=== PATIENT | male | born 1995 | race Two or more races ===

== ENCOUNTER 2016-08-19 12:27 | Emergency (ER) | payer OTHER ==
[2016-08-19 12:37] VITALS: BP 108/57; PULSE 69; TEMP 98.5; BMI 28.3
--- NOTE | 2016-08-19 14:13 | PDOC ---
History of Present Illness - General Chief Complaint: Injury Stated Complaint: INJURY Time Seen by Provider: 08/19/16 13:02 History Source: Patient Exam Limitations: No Limitations - History of Present Illness Initial Comments: 08/19/16 14:13 21-year-old male presenting injury to the left hand. Patient states was lifting up a heavy item that started to slip wedging his hand between 2 pieces of metal. Patient states this incident occurred yesterday and had minimal swelling at the time but states since swelling increased along with discomfort he decided come to the ER. Patient denies previous injury to the affected area, paresthesia distal of injury, radiation of pain. Timing/Duration: 24 hours Severity: mild Associated Symptoms: reports: denies symptoms Past History - Travel Traveled outside of the country in the last 30 days: No - Past Medical History Allergies/Adverse Reactions: Allergies Allergy/AdvReac Type Severity Reaction Status Date / Time No Known Allergies Allergy Verified 08/19/16 12:33 Home Medications: Ambulatory Orders NK [No Known Home Medication] 06/05/14 Other medical history: none - Immunization History Immunization Up to Date: Yes - Psycho/Social/Smoking Cessation Hx Anxiety: No Suicidal Ideation: No Smoking History: Never smoked Have you smoked in the past 12 months: No Information on smoking cessation initiated: No Hx Alcohol Use: No Drug/Substance Use Hx: No Substance Use Type: None Patient Lives Alone: No Lives with/in: parents Review of Systems - Review of Systems Able to Perform ROS?: Yes Is the patient limited Polish proficient: No Constitutional: No: Symptoms Reported Musculoskeletal: Yes: Joint Pain (left hand), Joint Swelling Integumentary: No: Bruising, Erythema Neurological: No: Symptoms reported *Physical Exam - Vital Signs Last Vital Signs Temp Pulse Resp BP Pulse Ox 98.5 F 69 16 108/57 100 08/19/16 12:33 08/19/16 12:33 08/19/16 12:33 08/19/16 12:33 08/19/16 12:33 - Physical Exam General Appearance: Yes: Nourished, Appropriately Dressed. No: Apparent Distress Comments:: 08/19/16 14:15 2+ left radial Integumentary: positive: Swelling (over the dorsal aspect of left hand extending from the wrist to the PIP joints of 3-5th digits) Neurologic: positive: Normal Mood/Affect, Motor Strength 5/5 (left hand grasp) ED Treatment Course - RADIOLOGY Radiology Studies Ordered: Category Date Time Status HAND- LEFT [RAD] Stat Radiology 08/19/16 13:25 Completed Medical Decision Making - Medical Decision Making 08/19/16 14:16 Patient with injury to left hand complaining of swelling and pain. Patient on exam had no point tenderness but did have diffuse edema over the dorsal aspect of left hand. Patient had no crepitus or deformity. Patient had no limited range of motion. Patient ordered for x-ray and offered Motrin but refused presently. *DC/Admit/Observation/Transfer Diagnosis at time of Disposition: Contusion of left hand Qualifiers: Encounter type: initial encounter Qualified Code(s): S60.222A - Contusion of left hand, initial encounter - Discharge Dispostion Disposition: HOME Condition at time of disposition: Good - Referrals Referrals: Andres Adams MD [Staff Physician] - - Patient Instructions Printed Discharge Instructions: DI for Hand Injury Additional Instructions: Take Motrin 600 mg every 8 hours for inflammation and discomfort. Apply ice to the affected area For the next 72 hours. If pain continues greater than 1 week follow-up with referred orthopedist
== END 2016-08-19 14:21 | disposition home or self-care (01) ==
LOC: JERFT 12:27 → JER 12:27
DX: S60.222A Contusion of left hand, initial encounter (principal); W23.1XXA Caught, crushed, jammed, or pinched between stationary objects, initial encounter; Y93.89 Activity, other specified; Y92.89 Other specified places as the place of occurrence of the external cause
CPT/HCPCS: 73130-TC-LT; 99281-25